=== PATIENT | female | born 1985 | race Caucasian/White ===

== ENCOUNTER 2020-10-14 22:21 | Inpatient (IN) | payer SELFPAY ==
[~2020-10-14] VITALS: Ht 172.7 cm; Wt 95.2 kg
[~2020-10-14 22:21] MED LIST: SULTRIDS PO
[2020-10-14 23:58] LABS: BASOPHILS ABSOLUTE AUTO 0.06 K/mm3 (0.00-0.23); BASOPHILS PERCENT AUTO 1 % (0-2); EOSINOPHILS ABSOLUTE AUTO 0.19 K/mm3 (0.00-0.68); EOSINOPHILS PERCENT AUTO 2 % (0-6); Hematocrit 42.1 % (33.0-51.0); Hemoglobin 14.1 g/dL (11.5-16.0); IMMATURE GRAN ABSOLUTE AUTO 0.03 K/mm3 (0.00-0.10); IMMATURE GRAN PERCENT AUTO 0 % (0-1); LYMPHOCYTES ABSOLUTE AUTO 3.08 K/mm3 (0.84-5.20); LYMPHOCYTES PERCENT AUTO 32 % (21-46); MONOCYTES ABSOLUTE AUTO 0.81 K/mm3 (0.16-1.47); MONOCYTES PERCENT AUTO 9 % (4-13); Mean Corpuscular HGB 30.4 pg (26.0-34.0); Mean Corpuscular HGB Conc 33.5 g/dL (31.5-36.5); Mean Corpuscular Volume 91 fL (80-100); Mean Platelet Volume 10.7 fL (9.1-12.4); NEUTROPHILS ABSOLUTE AUTO 5.33 K/mm3 (1.96-9.15); NEUTROPHILS PERCENT AUTO 56 % (41-73); Platelet Count 350 K/mm3 (150-400); RDW Coefficient Variation 12.1 % (11.7-14.2); RDW Standard Deviation 40.1 fL (35.1-46.3); Red Blood Cell Count 4.64 M/mm3 (3.80-5.20)
[2020-10-15 00:12] LABS: Alanine Aminotransfer (ALT/SGP 37 U/L (12-78); Alk Phos 76 U/L (50-136); Anion Gap 6 mmol/L (6-16); Aspartate Aminotrans (AST/SGOT 26 U/L (12-37); Beta HCG, Quantitative, Serum 35 mIU/mL (0-3); Bilirubin, Total 0.5 mg/dL (0.1-1.0); Blood Urea Nitrogen 18 mg/dL (8-24); Bun/Creatinine Ratio 25.9 (12.0-20.0); CO2, Blood 26 mmol/L (21-32); Calcium, Blood 8.7 mg/dL (8.5-10.1); Chloride, Blood 106 mmol/L (98-108); Globulin, Blood 4.1 g/dL (2.2-4.0); Glomerular Filtration Rate >60 (60-); Glucose, Blood 100 mg/dL (70-99); Potassium, Blood 3.8 mmol/L (3.5-5.5); Sodium, Blood 138 mmol/L (136-145); Total Protein, Blood 8.1 g/dL (6.4-8.2)
[2020-10-15 00:54] LABS: Source, Urine Clean Catch
[2020-10-15 00:56] LABS: Bilirubin, Urine Neg (Neg); Blood, Urine 5+ (Neg); Glucose Qualitative, Urine Neg (Neg); Ketones, Urine 3+ (Neg); Leukocyte Esterase, Urine Neg (Neg); Nitrite, Urine Neg (Neg); Protein, Urine 2+ (Neg); Specific Gravity, Urine 1.025 (1.003-1.022); Urobilinogen, Urine NORM (Normal)
[2020-10-15 01:02] LABS: Appearance, Urine Clear (Clear); Color, Urine Yellow (P-Yellow)
[2020-10-15 01:03] LABS: Amorphous Light (0-Heavy); Bacteria Few /hpf; Squamous Epithelial Cells Few /hpf (Few); White Blood Cells, Urine 0-2 /hpf (0-5)
[2020-10-15 01:32] LABS: Candida species (DNA Probe) Negative (NEGATIVE); G. vaginalis (DNA Probe) Negative (NEGATIVE); T. vaginalis (DNA Probe) Negative (NEGATIVE)
[2020-10-15 04:05] LABS: Influenza A, PCR NEGATIVE (NEGATIVE); Influenza B, PCR NEGATIVE (NEGATIVE); Resp Syncytial Virus, PCR NEGATIVE (NEGATIVE); SARS-Cov-2 (COVID-19) PCR, MMC NEGATIVE (NEGATIVE)
--- NOTE | 2020-10-15 06:09 | NUR ---
10/15/20 0609 Chayito Morton NO PREOP ANTIBIOTICS ORDERED
--- NOTE | 2020-10-15 08:37 | NUR ---
POST-OP RECOVERY: PT ARRIVED FROM OR AT APPROX 0725 TO ROOM ICU-16. THE PT IS ON 9L NRB AT THAT TIME W/ O2 SATS > 95%, SBP 130s & HR 80s. RESPIRATIONS EVEN/UNLABORED. THE PT AWAKENS SLIGHTLY TO VERBAL STIMULUS & MUMBLES BUT QUICKLY RESUMES RESTING. THE PLAN IS FOR DISCHARGE HOME ONCE FULLY RECOVED W/ ICU STAFF ACTING PACU. PRN PAIN/NAUSEA MEDS PER EMAR. THE PT HAS BEEN ABLE TO USE THE BEDPAN & VOID A SMALL AMNT OF YELLOW URINE ONCE. LANDERS REMOVED BY OR STAFF PRIOR TO PT's ARRIVAL. DR MADRID HAS BEEN AT BEDSIDE TO EVAL THE PT & HAS PROVIDED A WRITTEN SCRIPT FOR PO DILAUDID FOR PT's HOME USE.
[2020-10-15] MEDS ORDERED: HYDMOR4 PO (10:31)
[2020-10-15] MEDS ORDERED: IBUP800 PO (10:32)
[2020-10-15] MEDS ORDERED: ONDA4ODT MM (10:33)
--- NOTE | 2020-10-15 11:46 | NUR ---
DISCHARGE TO HOME: THE PT STS THAT HER PAIN IS ADEQUATELY CONTROLLED AT THIS TIME. ONE TIME ORDER PLACED FOR ZOFRAN ODT SOLUTAB PER DISCHARGE MED ORDERS FOR PT HAVING INCREASED NAUSEA AFTER PIV REMOVED. SHE HAS TOLERATED THIS WELL PRIOR TO DISCHARGE W/ NAUSEA IMPROVED, PER HER STATEMENT. D/C EDUCATION HAS BEEN COMPLETED W/ THE PT & HER , YUNIEL, WHO IS AT BEDSIDE DURING THIS TIME. THE PT & HER DENY FURTHER QUESTIONS & THE PT HAS BEEN TAKEN OUT OF UNIT BY BENNETT Freeman, [employer]POSITION WE[employer]ER[employer]ARD INST[employer]ER, VIA . ALL PT BELONGINGS HAVE BEEN TAKEN OUT AT THAT TIME WELL. THIS RN HAS REVIEWED COMPOSITION WE[employer]ER[employer]ARD INSTALLER's DOCUMENTATION WITHIN THIS CHART FOR ACCURACY.
== END 2020-10-15 11:25 | disposition home or self-care (01) | DRG 819 ==
LOC: ER 22:21 → ICUW 10-15 03:14 → SURS 10-15 03:14 → ICUW 10-15 04:34
PROVIDERS: Emergency Medicine; ADMIT Obstetrics & Gynecology
PROC: 0UT54ZZ Resection of Right Fallopian Tube, Percutaneous Endoscopic Approach (ICD-10-PCS; 2020-10-15)
PROC: 10T24ZZ Resection of Products of Conception, Ectopic, Percutaneous Endoscopic Approach (ICD-10-PCS; principal; 2020-10-15 07:30)
DX: O00.101 Right tubal pregnancy without intrauterine pregnancy (principal); Z20.822 Contact with and (suspected) exposure to COVID-19
CPT/HCPCS: 0241U; 36415; 76801; 76817; 80053; 81001; 83735; 84702; 85025; 86900; 86901; 87480; 87510; 87660; 96374; 96375; 96376; 99285-25; A9270; J1100; J2250; J2270; J2405; J2550; J2704; J2710; J3010; J7120

== ENCOUNTER → 2022-08-10 | Outpatient (CLI) | payer SELFPAY ==
[~2022-08-10] MED LIST changes: +HYDMOR4 PO; +IBUP800 PO; +ONDA4ODT MM
[2022-08-13 01:08] LABS: CHLAMYDIA TRACHOMATIS, NAA Negative (Negative)
== END | disposition home or self-care (01) ==
LOC: LAB SHORT 18:41
PROVIDERS: Obstetrics & Gynecology
DX: O09.511 Supervision of elderly primigravida, first trimester (principal)
CPT/HCPCS: 87491; 87591

== ENCOUNTER 2024-04-18 18:49 | Inpatient (IN) | payer OTHER ==
[~2024-04-18] VITALS: Ht 172.7 cm; Wt 99.0 kg
[~2024-04-18 18:49] MED LIST changes: +PRENATAL TABLE1 EAC2
[2024-04-18 19:07] VITALS: BP 135/82
[2024-04-18] MEDS ORDERED: Acetaminophen 500 MG Tab PO PRN (19:30)
[2024-04-18] MEDS ORDERED: Ondansetron HCl 2 MG / ML 2ML Vial IV PRN (19:30)
[2024-04-18] MEDS ORDERED: Methylergonovine Maleate 0.2MG / ML 1ML Amp IM PRN (19:30)
[2024-04-18] MEDS ORDERED: FentaNYL Citrate 50 MCG/ML 2 ML Injection IV PRN (19:30)
[2024-04-18] MEDS ORDERED: Tranexamic Acid 100 ML IV SCH (19:30)
[2024-04-18] MEDS ORDERED: OXYTOCIN/RINGER'S LACTATE 500 ML IV PRN (19:30)
[2024-04-18] MEDS ORDERED: Misoprostol 200 MCG Tab PR PRN (19:30)
[2024-04-18] MEDS ORDERED: Lactated Ringer's 1,000 ML IV PRN (19:30)
[2024-04-18] MEDS ORDERED: Oxytocin 10 Unit / ML Vial IM PRN (19:30)
[2024-04-18] MEDS ORDERED: Calcium Carbonate 500 MG Tab Chew PO PRN (19:30)
[2024-04-18] MEDS ORDERED: Misoprostol 200 MCG Tab BC PRN (19:30)
[2024-04-18] MEDS ORDERED: Carboprost Tromethamine 250 MCG/ML 1ML Amp IM PRN (19:30)
[2024-04-18 20:37] LABS: BASOPHILS ABSOLUTE AUTO 0.03 K/mm3 (0.00-0.23); BASOPHILS PERCENT AUTO 0 % (0-2); EOSINOPHILS ABSOLUTE AUTO 0.06 K/mm3 (0.00-0.68); EOSINOPHILS PERCENT AUTO 1 % (0-6); Hematocrit 35.7 % (33.0-51.0); Hemoglobin 11.8 g/dL (11.5-16.0); IMMATURE GRAN ABSOLUTE AUTO 0.03 K/mm3 (0.00-0.10); IMMATURE GRAN PERCENT AUTO 0 % (0-1); LYMPHOCYTES ABSOLUTE AUTO 1.96 K/mm3 (0.84-5.20); LYMPHOCYTES PERCENT AUTO 26 % (21-46); MONOCYTES ABSOLUTE AUTO 0.83 K/mm3 (0.16-1.47); MONOCYTES PERCENT AUTO 11 % (4-13); Mean Corpuscular HGB 28.2 pg (26.0-34.0); Mean Corpuscular HGB Conc 33.1 g/dL (31.5-36.5); Mean Corpuscular Volume 85 fL (80-100); Mean Platelet Volume 11.5 fL (9.1-12.4); NEUTROPHILS ABSOLUTE AUTO 4.79 K/mm3 (1.96-9.15); NEUTROPHILS PERCENT AUTO 62 % (41-73); Platelet Count 226 K/mm3 (150-400); RDW Coefficient Variation 13.3 % (11.7-14.2); RDW Standard Deviation 41.2 fL (35.1-46.3); Red Blood Cell Count 4.19 M/mm3 (3.80-5.20)
[2024-04-18] MEDS ORDERED: Lactated Ringer's 1,000 ML IV SCH (21:10)
[2024-04-18] MEDS ORDERED: OXYTOCIN/RINGER'S LACTATE 500 ML IV SCH (21:10)
[2024-04-18 21:51] VITALS: BP 133/73
[2024-04-19] VITALS (14 sets, daily range): BP systolic 99–129; BP diastolic 51–70
[2024-04-19] MEDS ORDERED: Pantoprazole Sodium 40 MG Injection IV ONE (04:05)
[2024-04-19] MEDS ORDERED: Benzocaine Topical Anesthetic Spray 60GM TOP PRN (06:50)
[2024-04-19] MEDS ORDERED: Witch Hazel/Glycerin PADS TOP PRN (06:50)
[2024-04-19] MEDS ORDERED: Ibuprofen 400 MG Tab PO PRN (06:50)
[2024-04-19] MEDS ORDERED: FLU VACC TS2024-25(6MOS UP)/PF 45 MCG/0.5 ML SYRINGE IM PRN (06:50)
[2024-04-19] MEDS ORDERED: Lanolin Cream TOP PRN (06:55)
[2024-04-19] MEDS ORDERED: Lactated Ringer's 1,000 ML IV SCH (06:55)
[2024-04-19] MEDS ORDERED: Acetaminophen 325 MG TABLET PO PRN (06:55)
[2024-04-19] MEDS ORDERED: Prenatal Vit/FE Fumarate/FA 1 Tab PO SCH (09:00)
[2024-04-19] MEDS ORDERED: Ketorolac Tromethamine 30mg Vial IV SCH (12:00)
[2024-04-20 05:50] VITALS: BP 111/65
[2024-04-20 06:59] LABS: BASOPHILS ABSOLUTE AUTO 0.03 K/mm3 (0.00-0.23); BASOPHILS PERCENT AUTO 0 % (0-2); EOSINOPHILS ABSOLUTE AUTO 0.09 K/mm3 (0.00-0.68); EOSINOPHILS PERCENT AUTO 1 % (0-6); Hematocrit 33.3 % (33.0-51.0); Hemoglobin 10.9 g/dL (11.5-16.0); IMMATURE GRAN ABSOLUTE AUTO 0.04 K/mm3 (0.00-0.10); IMMATURE GRAN PERCENT AUTO 0 % (0-1); LYMPHOCYTES ABSOLUTE AUTO 1.62 K/mm3 (0.84-5.20); LYMPHOCYTES PERCENT AUTO 18 % (21-46); MONOCYTES ABSOLUTE AUTO 0.63 K/mm3 (0.16-1.47); MONOCYTES PERCENT AUTO 7 % (4-13); Mean Corpuscular HGB 28.2 pg (26.0-34.0); Mean Corpuscular HGB Conc 32.7 g/dL (31.5-36.5); Mean Corpuscular Volume 86 fL (80-100); Mean Platelet Volume 11.4 fL (9.1-12.4); NEUTROPHILS ABSOLUTE AUTO 6.62 K/mm3 (1.96-9.15); NEUTROPHILS PERCENT AUTO 73 % (41-73); Platelet Count 199 K/mm3 (150-400); RDW Coefficient Variation 13.6 % (11.7-14.2); RDW Standard Deviation 42.1 fL (35.1-46.3); Red Blood Cell Count 3.87 M/mm3 (3.80-5.20); White Blood Cell Count 9.03 K/mm3 (4.00-11.30)
[2024-04-20 08:14] VITALS: BP 119/75
[2024-04-20] MEDS ORDERED: IBUP800 PO (11:12)
[2024-04-20] MEDS ORDERED: ACET500 PO (11:12)
[2024-04-20 12:09] VITALS: BP 119/73
== END 2024-04-20 14:45 | disposition home or self-care (01) | DRG 807 ==
LOC: BC 18:49 → OBS 18:49 → BC 18:51 → OBS 19:42 → BC 04-20 14:45
PROVIDERS: ADMIT Obstetrics & Gynecology
PROC: 10E0XZZ Delivery of Products of Conception, External Approach (ICD-10-PCS; principal; 2024-04-19)
DX: O69.81X0 Labor and delivery complicated by cord around neck, without compression, not applicable or unspecified (principal); Z37.0 Single live birth; Z3A.38 38 weeks gestation of pregnancy; Z91.018 Allergy to other foods; Z88.5 Allergy status to narcotic agent; Z90.79 Acquired absence of other genital organ(s); Z79.899 Other long term (current) drug therapy
CPT/HCPCS: 36415; 59025; 81003; 85025; 99214; A9270; J2405; J2470; J2590; J7120